=== PATIENT | male | born 1995 | race African-American/Black ===

== ENCOUNTER 2016-12-28 15:50 | Emergency (ER) | payer MEDICAID, OTHER ==
[~2016-12-28] VITALS: Ht 177.8 cm; Wt 79.0 kg
[2016-12-28 17:44] VITALS: BP 127/64
== END 2016-12-29 12:05 | disposition home or self-care (01) ==
LOC: ER 21:04
DX: N48.21 Abscess of corpus cavernosum and penis (principal); Z87.898 Personal history of other specified conditions
CPT/HCPCS: 99283

== ENCOUNTER 2017-09-16 06:06 | Emergency (ER) | payer MEDICAID ==
[~2017-09-16] VITALS: Ht 177.8 cm; Wt 79.5 kg
[2017-09-16] MEDS ORDERED: SODIUM CHLORIDE 0.9% 1,000 ML IV ONE (08:00)
[2017-09-16] MEDS ORDERED: ONDANSETRON HCL 4MG/2ML VIAL IV ONE (08:00)
[2017-09-16 08:59] LABS: CHLORIDE 103 mEq/L (98-107)
[2017-09-16 09:03] LABS: HEMATOCRIT. 48.1 % (42.0-52.0); HEMOGLOBIN. 16.3 g/dL (14.0-18.0); MEAN CORPUSCULAR HEMOGLOBIN 27.7 pg (28.0-32.0); MEAN CORPUSCULAR VOLUME 81.8 fL (80.0-94.0); MEAN PLATELET VOLUME 8.2 fl (7.4-10.4); PLATELET 189 x1000/uL (130-400); RED BLOOD CELL COUNT 5.88 mill/uL (4.7-6.1); RED CELL DISTRIBUTION WIDTH 13.7 % (11.6-14.6)
[2017-09-16 09:05] LABS: CARBON DIOXIDE 28 mEq/L (21-32)
[2017-09-16 10:09] LABS: PLATELET ESTIMATE NORMAL
[2017-09-16 11:00] VITALS: BP 122/72
[2017-09-20 15:11] LABS: INFLUENZA B AB CF 1:16 (Neg:<1:8)
== END 2017-09-16 12:59 | disposition home or self-care (01) ==
LOC: ER 06:23
DX: T62.8X1A Toxic effect of other specified noxious substances eaten as food, accidental (unintentional), initial encounter (principal); R11.2 Nausea with vomiting, unspecified; Y92.89 Other specified places as the place of occurrence of the external cause
CPT/HCPCS: 36415; 80053; 85025; 86710; 96361; 96374; 99285; J2405; J7030; Z7610

== ENCOUNTER 2018-04-29 12:28 | Emergency (ER) | payer MEDICAID ==
[~2018-04-29] VITALS: Ht 175.3 cm; Wt 79.0 kg
[2018-04-29 12:51] VITALS: BP 140/55
[2018-04-29] MEDS ORDERED: IBUPROFEN 800MG TABLET PO ONE (14:45)
== END 2018-04-29 16:50 | disposition left against medical advice (07) ==
LOC: ER 14:21
DX: S46.912A Strain of unspecified muscle, fascia and tendon at shoulder and upper arm level, left arm, initial encounter (principal); W10.1XXA Fall (on)(from) sidewalk curb, initial encounter; Y93.89 Activity, other specified; Y92.89 Other specified places as the place of occurrence of the external cause; Y99.8 Other external cause status
CPT/HCPCS: 73030; 99284